=== PATIENT | male | born 1995 ===

== ENCOUNTER 2023-10-04 20:53 | Emergency (ER) | payer SELFPAY ==
[2023-10-04 21:07] LABS: % Basophils 0.3 % (0-2); % Eosinophils 7.3 % (0-6); % Immature Granulocytes 0.3 % (0-0.5); % Lymphocytes 34.4 % (20.5-51.1); % Monocytes 6.7 % (1.7-9.3); Absolute Eosinophils 0.5 10^3/uL (0-0.7); Absolute Lymphocytes 2.4 10^3/uL (1.2-3.4); Absolute Monocytes 0.5 10^3/uL (0.1-0.6); Absolute Neutrophils 3.5 10^3/uL (1.4-6.5); Hematocrit 38.2 % (39.0-52.0); Hemoglobin 12.9 g/dL (13.0-18.0); Mean Corp Hgb Conc. 33.8 g/dL (33.0-37.0); Mean Corpuscular Hgb 29.7 pg (27.0-31.0); Mean Corpuscular Volume 87.8 fL (80.0-94.0); Nucleated Red Blood Cells % 0 % (-); Platelet Count 191 10^3/uL (130-400); Red Blood Cell Count 4.35 10^6/uL (4.70-6.10); Red Cell Dist. Width 11.9 % (11.5-14.5); White Blood Cell Count 6.9 10^3/uL (4.8-10.8)
[2023-10-04 21:29] LABS: ALT (SGPT) 28 U/L (0-50); AST (SGOT) 38 U/L (17-59); Albumin 4.8 g/dl (3.5-5.0); Alkaline Phosphatase 62 U/L (38-126); Blood Urea Nitrogen 27 mg/dl (9-20); Calcium 9.5 mg/dl (8.4-10.2); Carbon Dioxide 26 mmol/L (22-30); Chloride 102 mmol/L (98-107); Glucose 101 mg/dl (70-99); Potassium 4.3 mmol/L (3.5-5.1); Sodium 139 mmol/L (135-145); Total Bilirubin 0.3 mg/dl (0.2-1.3); Total Protein 7.3 g/dl (6.3-8.2); eGFR > 60.00
--- NOTE | 2023-10-04 23:58 | ED.GENMED ---
History of Present Illness
<BISI sEposito - Last Filed: 10/05/23 01:10>
General
Chief Complaint: Cold/Flu/URI Symptoms
Source: patient and significant other
Time Seen by Provider: 10/04/23 23:58
Travel History
Have you had any contact with someone who has COVID-19?: No
Do you have any symptoms of coronavirus? Fever > 100 degrees, chills, cough, shortness of breath, sore throat, loss of taste or smell, muscle aches, or headache?: No
History of Present Illness
History of Present Illness:
Pt is a 28 year old male presenting with congestion and watery eyes x 5 days. He states the congestion has been worsening in the last 2 days. He feels congested but nothing comes out when he blows his nose. He has a history of seasonal allergies but
states this is more severe than his allergies. He notes Claritin, which usually relieves his symptoms, is not working. 3 days ago he began taking 1 Mucinex DM in the morning and 1 in the evening, and 2 Dayquil in the morning which have not helped.
He denies Afrin use. He states last week he also began using a CBD vaping pen. He denies radiation of pain from his congestion. He reports it is worse in the morning and night. He reports associated fatigue and confusion, stating he feels as though
his short term memory is not as sharp as usual. He denies fevers, chills, teeth pain, head trauma, cough, sore throat, abdominal pain, dysuria, hematuria, nausea, vomiting, headache, or dizziness. His girlfriend states he began acting very
abnormally 2 days ago, stating he looks like 'he is stumbling around the house drunk'. She is concerned for drug use and is requesting a drug test. He denies drug use. He states he uses marijuana very irregularly and has never had this reaction to
it before. He denies spending time outside prior to the onset of his symptoms. He drives for work.
Review of Systems
<BISI Esposito - Last Filed: 10/05/23 01:10>
Review of Systems
All Other Systems: Not applicable
Constitutional: Reports fatigue
EENT: Reports other (sinus congestion, no runny nose)
Respiratory: Reports no symptoms
Cardiac: Reports no symptoms
ABD/GI: Reports no symptoms
: Reports no symptoms
Musculoskeletal: Reports no symptoms
Skin: Reports no symptoms
Neurological: Reports other (confused)
Endocrine: Reports no symptoms
Hematologic/Lymphatic: Reports no symptoms
Psychiatric: Reports no symptoms
Phy Exam
<BISI Esposito - Last Filed: 10/05/23 01:10>
General Physical Exam
General Presentation: no apparent distress
General age: appears stated age
General Skin: warm and dry
General Habitus: normal
General Mental: appears intoxicated
General Hydration: dry mucous membranes
ENT Exam
ENT Exam: EOMI, TM's normal, pharynx normal, neck supple, normocephalic and other (swelling of periorbital area and maxillary sinus on right side. No TTP to right side.)
Eye Exam
Eye Exam: PERRL and EOMI (no pain with eye movement)
Right 20/: 40
Left 20/: 40
Both 20/: 20
Cardiovascular Exam
Cardiovascular Exam: regular rate/rhythm, no edema, no gallop, no murmur and normal peripheral pulses
Pulmonary Exam
Pulmonary Exam: lungs clear, no respiratory distress, no rales, chest non tender, no crackles, no rhonchi, no wheezing and no cough
Gastrointestinal Exam
Gastrointestinal Exam: normal bowel sounds, non tender, soft and non distended
Musculoskeletal Exam
Musculoskeletal Exam: no edema
Skin Exam
Skin Exam: normal color and warm/dry
Psychiatric Exam
Psychiatric Exam: normal mood/affect
Course
<BISI Esposito - Last Filed: 10/05/23 01:10>
Orders/Labs/Results
Orders:
Orders
10/04/23 21:03
CMP [Comprehensive Metabolic Panel] Urgent
Complete Blood Count/With Diff Urgent
10/05/23 01:16
COVID-19 Antigen Urgent
Source: Nasal Swab
Influenza A+B Rapid Molecular Urgent
ALLIE Source: Nasal Swab
Specimen Description:
10/05/23 01:19
CT Head W/o Iv Contrast Urgent
Comment:
Reason For Exam: AMS
10/05/23 01:24
Urine Drug Abuse Screen Urgent
Date Specimen was Collected: 10/05/23
Time Specimen was Collected: 01:19
Abnormal Lab Results
10/04/23 10/05/23
21:03 01:24
RBC 4.35 L 10^6/uL
(4.70-6.10)
Hgb 12.9 L g/dL
(13.0-18.0)
Hct 38.2 L %
(39.0-52.0)
Eosinophils % 7.3 H %
(0-6)
BUN 27 H mg/dl
(9-20)
Glucose 101 H mg/dl
(70-99)
U Marijuana (THC) Screen Positive H
(Negative)
10/04/23 21:03
10/04/23 21:03
Vital Signs
Initial and Last Documented VS:
Initial Vital Signs
Temp Pulse Resp Pulse Ox
98.3 F 96 19 97
10/04/23 20:55 10/04/23 20:55 10/04/23 20:55 10/04/23 20:55
Last Documented Vital Signs
Temp Pulse Resp BP Pulse Ox
98.3 F 96 19 125/62 97
10/04/23 20:55 10/04/23 20:55 10/04/23 20:55 10/05/23 01:33 10/05/23 01:35
<Sukhjinder Donnelly, DO - Last Filed: 10/05/23 03:44>
Orders/Labs/Results
Orders:
Orders
10/04/23 21:03
CMP [Comprehensive Metabolic Panel] Urgent
Complete Blood Count/With Diff Urgent
10/05/23 01:16
COVID-19 Antigen Urgent
Source: Nasal Swab
Influenza A+B Rapid Molecular Urgent
ALLIE Source: Nasal Swab
Specimen Description:
10/05/23 01:19
CT Head W/o Iv Contrast Urgent
Comment:
Reason For Exam: AMS
10/05/23 01:24
Urine Drug Abuse Screen Urgent
Date Specimen was Collected: 10/05/23
Time Specimen was Collected: 01:19
Abnormal Lab Results
10/04/23 10/05/23
21:03 01:24
RBC 4.35 L 10^6/uL
(4.70-6.10)
Hgb 12.9 L g/dL
(13.0-18.0)
Hct 38.2 L %
(39.0-52.0)
Eosinophils % 7.3 H %
(0-6)
BUN 27 H mg/dl
(9-20)
Glucose 101 H mg/dl
(70-99)
U Marijuana (THC) Screen Positive H
(Negative)
10/04/23 21:03
10/04/23 21:03
Vital Signs
Initial and Last Documented VS:
Initial Vital Signs
Temp Pulse Resp Pulse Ox
98.3 F 96 19 97
10/04/23 20:55 10/04/23 20:55 10/04/23 20:55 10/04/23 20:55
Last Documented Vital Signs
Temp Pulse Resp BP Pulse Ox
98.3 F 96 19 125/62 97
10/04/23 20:55 10/04/23 20:55 10/04/23 20:55 10/05/23 01:33 10/05/23 01:35
<BISI Esposito - Last Filed: 10/05/23 01:10>
MDM/Problems Addressed
Differential Diagnosis Includes:
sinus infection, allergic rhinitis, orbital cellulitis, periorbital cellulitis, dental abscess
MDM/Problems Addressed:
sinus congestion
<BISI Esposito - Last Filed: 10/05/23 01:10>
*Pulse Oximetry
Patient hypoxic: no
*Critical Care Note
Total Time (30-74mins, 75-104mins- exclusive of procedures): Not Applicable
<Sukhjinder Donnelly DO - Last Filed: 10/05/23 03:44>
Update Note
Update Note:
CT head without contrast
IMPRESSION:
No acute intracranial abnormality. No acute territorial infarct, hemorrhage, mass effect, or midline shift. Mild microangiopathy.
ED Attending Note
<BISI Esposito - Last Filed: 10/05/23 01:10>
-
Portions of this chart may have been created with voice recognition software.� Occasional wrong word or��sound alike� substitutions may have occurred due to the inherent limitations of voice recognition software.
<Sukhjinder Donnelly DO - Last Filed: 10/05/23 03:44>
ED Attending Note
Patient seen and examined by attending physician: Yes
I performed the substantive portion of visit, reviewed & personally made and approve the management plan that is documented in note by myself or PASTOR.: Yes
ED Attending Note:
28-year-old male presents with confusion and somnolence. He has been having congestion for the last 5 days.
Discharge Plan
Departure
Patient Disposition: Home (Routine Discharge)
Date of Disposition: 10/05/23
Time of Disposition: 03:41
Patient with high blood pressure during this ER visit?: No
Discharge Problem:
Acute sinusitis
Instructions: Sinusitis, Adult ED, BLOOD PRESSURE
Prescriptions:
New
amoxicillin-pot clavulanate 875-125 mg tablet
1 tab PO Q12H Qty: 20 0RF
No Action
loratadine [Claritin] 10 mg Tablet
10 mg PO DAILY
Referrals:
iMk Staley MD [Active] -
NONE,* [Family Provider] -
Interventions
Interventions:
*Risk Screen - Suicide Last Done: 10/04/23 20:55
*General Assessment Last Done: 10/04/23 20:55
*Neglect/Abuse Screening Last Done: 10/04/23 20:55
ED- Fall Risk Assessment Last Done: 10/05/23 01:30
*ED COVID-19 Vaccine History Last Done: 10/04/23 20:55
ED- Pulmonary Assessment Last Done: 10/05/23 01:30
Discharge Date and Time
Print Language: WELSH
[2023-10-05 01:33] VITALS: BP 125/62
[2023-10-05 01:58] LABS: COVID-19 Antigen Negative (Negative)
[2023-10-05 03:30] LABS: Amphetamines Negative (Negative); Barbiturates Negative (Negative); Benzodiazepines Negative (Negative); Buprenorphine Negative (Negative); Cocaine Negative (Negative); Marijuana Positive (Negative); Methadone Negative (Negative); Methamphetamines Negative (Negative); Opiates Negative (Negative); Phencyclidine Negative (Negative); Tricyclic Antidepressants Negative (Negative)
== END 2023-10-05 03:45 | disposition home or self-care (01) ==
LOC: EMR 20:53
PROVIDERS: Emergency Medicine; EMERGENCY PHYSICIAN Student in an Organized Health Care Education/Training Program
DX: J01.90 Acute sinusitis, unspecified (principal)
CPT/HCPCS: 99284; 70450; 80053; 80306; 85025; 87502; 87811